=== PATIENT | male | born 1980 | race African-American/Black ===

== ENCOUNTER 2017-09-14 12:32 | Emergency (ER) | payer OTHER | END 2017-09-14 16:07 | disposition home or self-care (01) | LOC: FTE 12:32 | DX: S69.92XA Unspecified injury of left wrist, hand and finger(s), initial encounter (principal); H60.92 Unspecified otitis externa, left ear; F17.210 Nicotine dependence, cigarettes, uncomplicated; W19.XXXA Unspecified fall, initial encounter; Y92.9 Unspecified place or not applicable | CPT/HCPCS: 73140; 99283-25 ==